=== PATIENT | male | born 1985 | race Caucasian/White ===

== ENCOUNTER 2021-07-15 12:51 | Emergency (ER) | payer MEDICAID ==
[~2021-07-15] VITALS: Ht 177.8 cm; Wt 95.0 kg
[~2021-07-15 12:51] MED LIST: LIDOcaine 1% 30ml preserv. free vial ONE; NO HOME MEDS
[2021-07-15] MEDS ORDERED: TETanus/Pertussis (Acell)/Diphther VAC/PF (Tdap-Adult) 0.5ml syringe IMVAC ONE (13:00)
[2021-07-15] MEDS ORDERED: bacitracin 15gm ointment TP ONE ×2 (13:00→14:10)
[2021-07-15 13:05] VITALS: BP 140/80
== END 2021-07-15 14:29 | disposition home or self-care (01) ==
LOC: ER 12:52
DX: S61.511A Laceration without foreign body of right wrist, initial encounter (principal); Z72.89 Other problems related to lifestyle; W22.8XXA Striking against or struck by other objects, initial encounter; Y93.89 Activity, other specified; Y92.89 Other specified places as the place of occurrence of the external cause; Y99.8 Other external cause status
CPT/HCPCS: 12002; 99282; J2001

== ENCOUNTER 2022-08-19 16:48 | Emergency (ER) | payer MEDICAID ==
[~2022-08-19] VITALS: Ht 177.8 cm; Wt 88.0 kg
[~2022-08-19 16:48] MED LIST changes: -LIDOcaine 1% 30ml preserv. free vial ONE
[2022-08-19 16:49] VITALS: BP 142/81
== END 2022-08-19 17:51 | disposition home or self-care (01) ==
LOC: ER 16:48
DX: T80.89XA Other complications following infusion, transfusion and therapeutic injection, initial encounter (principal); R52 Pain, unspecified
CPT/HCPCS: 99281

== ENCOUNTER 2022-08-20 12:06 | Emergency (ER) | payer MEDICAID | END 2022-08-20 14:26 | disposition left against medical advice (07) | LOC: ER 12:07 | DX: M79.606 Pain in leg, unspecified (principal); Z53.21 Procedure and treatment not carried out due to patient leaving prior to being seen by health care provider ==